=== PATIENT | male | born 1940 | race Caucasian/White ===

== ENCOUNTER 2018-05-16 14:35 | Inpatient (IN) | payer MEDICARE, SELFPAY ==
[2018-05-16] VITALS (13 sets, daily range): BP systolic 152–191; BP diastolic 76–129; PULSE 61–96; RESP 14–25; TEMP 36.4–37.2; O2SAT 87–96; BMI 21.1; BMI 20.6
[2018-05-16 15:46] LABS: Absolute Lymphocyte Count 0.94 X10^3/ul (0.83-4.51); Absolute Neutrophil Count 11.3 X10^3/uL (2.0-7.7); Basophil# 0.01 X10^3/uL; Basophil% 0.1 % (0-1); Hematocrit 34.2 % (40-54); Lymphocyte # 0.94 X10^3/ul (4.0); Lymphocyte % 7.2 % (19-41); Mean Corp Hgb Conc 32.2 g/gl (32-36); Mean Corpuscular Hgb 31.6 pg (27.0-32.0); Mean Corpuscular Volume 98.3 fL (80-94); Mean Platelet Vol. 10.9 fl (6.2-12.0); Monocyte# 0.68 X10^3/uL; Monocyte% 5.2 % (0-10); Neutrophil # 11.32 X10^3/uL (2.7-7.7); Neutrophil % 87.2 % (47-70); POSITIVE COUNT NO; POSITIVE DIFFERENTIAL NO; POSITIVE MORPHOLOGY NO; Platelet Count 228 K/mm3 (150-450); RBC Distribution Width CV 15.2 % (11.6-14.6); RBC Distribution Width SD 54.4 fl (35.1-43.9); Red Blood Count 3.48 M/mm3 (4.6-6.2)
[2018-05-16] MEDS: Ipratropium/Albuterol Sulfate 3 ML AMPUL.NEB INHALATION (15:47)
[2018-05-16] MEDS: Albuterol 2.5 MG/3 ML VIAL.NEB. INHALATION (15:47)
[2018-05-16 15:50] LABS: Anion Gap 6 (5-15); BUN 20 mg/dL (7-18); BUN/Creat Ratio 16.8 RATIO (10-20); Calcium,Total 8.6 mg/dL (8.5-10.1); Chloride 102 mmol/L (98-107); Creatinine, Serum 1.19 mg/dL (0.70-1.30); EST Glomerular Filtration Rate 63 mL/min (>60); Est Glom Filt Rate - Afr Amer 76 mL/min (>60); Estimated Creatinine Clearance 44.85 ml/min; Glucose 118 mg/dL (74-106); Potassium 4.9 mmol/L (3.5-5.1); Sodium Level 137 mmol/L (136-145)
[2018-05-16 15:55] LABS: Lactic Acid 1.7 mmol/L (0.4-2.0)
--- NOTE | 2018-05-16 18:20 | ED.VISSUMM ---
- ER Visit Summary Date of Service: 05/16/18 Chief Complaint: Abdominal pain History of Present Illness: The patient is a 77 M who was admitted as an observation patient to [facility] past Thursday for abdominal pain. Was found that he was constipated. He has had intermittent episodes since discharge. followed by our recommendation he now has diarrhea. She is concerned that he has a fecal impaction. She also believes that the shortness of breath and cough are secondary to the abdominal pain. Triage nurse and bedside nurse both document patient has audible wheezing. answers most questions. He has not had a documented fever. He has had no night sweats. 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 He also has diagnoses COPD. Review of old records also indicate he has history coronary disease, hypertension, hypercholesterolemia and hypothyroidism. He is status post three-vessel coronary bypass surgery. Physical Examination: Vital signs micromelic blood pressure 189/129. Patient is breathing much more rapidly and 22 times a minute. There is use of accessory muscles. He was hypoxic on room air. He is not on home oxygen. HEENT exam is unremarkable with pink conjunctival. Lungs reveal wheezing throughout with rales. There is use of accessory muscles. There is increased x-ray phase. There is decreased air movement. Heart is regular without murmur, gallop or rub. Abdomen slightly distended bowel sounds are present and normal. Rectal exam reveals no fecal impaction or stool in the rectum. He is alert oriented. Cranial 2 through 12 intact. He moves all extremities. Sensations intact. He has a depressed affect. Test Results: EKG was obtained because monitor revealed bigeminy. Rate is 90. Sinus mechanism with frequent premature ventricular beats and nonspecific ST-T wave changes which may be secondary to the premature ventricular beats. White count elevated 13,000 with 87 segs. Electro panel reveals glucose of 118. Lactate is normal at 1.7. Two-view chest x-ray reveals chronic changes there is no evidence of pneumonia, pneumothorax or hilar lymphadenopathy. Emergency Department Course and Treatment: With patient being dyspneic with use of accessory muscles and audible wheezing history of COPD due to rule out pneumonia versus exacerbation COPD versus pneumothorax. He was treated with DuoNeb and albuterol. He was placed on oxygen. Since he has a history of Stone's disease he will receive a stress dose of prednisone and because he has history of COPD with distress and hypoxia will treat with antibiotics. Treatment Plan: Antibiotics, systemic steroids, oxygen for hypoxia Disposition: The hospitalist was paged for admission Impression: 1. Respiratory failure with hypoxia 2. Exacerbation of COPD 3. History of Stone's disease 4. Abdominal pain unknown etiology 5. History of coronary disease 6. Ventricular ectopy with bigeminy This note was generated with [employer] software. It may contain incorrect words, spelling, and punctuation that were not noted in review of the chart prior to signing ED Disposition - Plan for ED Patient: Chief Complaint: Shortness of Breath Referrals: Nolan Amaya MD [Primary Care Provider] -
--- NOTE | 2018-05-16 18:24 | ED.DCSUM_ITS ---
- ER Visit Summary Date of Service: 05/16/18 Chief Complaint: Abdominal pain History of Present Illness: The patient is a 77 M who was admitted as an observation patient to [facility] past Thursday for abdominal pain. Was found that he was constipated. He has had intermittent episodes since discharge. followed by our recommendation he now has diarrhea. She is concerned that he has a fecal impaction. She also believes that the shortness of breath and cough are secondary to the abdominal pain. Triage nurse and bedside nurse both document patient has audible wheezing. answers most questions. He has not had a documented fever. He has had no night sweats. 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 He also has diagnoses COPD. Review of old records also indicate he has history coronary disease, hypertension, hypercholesterolemia and hypothyroidism. He is status post three-vessel coronary bypass surgery. Physical Examination: Vital signs micromelic blood pressure 189/129. Patient is breathing much more rapidly and 22 times a minute. There is use of accessory muscles. He was hypoxic on room air. He is not on home oxygen. HEENT exam is unremarkable with pink conjunctival. Lungs reveal wheezing throughout with rales. There is use of accessory muscles. There is increased x -ray phase. There is decreased air movement. Heart is regular without murmur, gallop or rub. Abdomen slightly distended bowel sounds are present and normal. Rectal exam reveals no fecal impaction or stool in the rectum. He is alert oriented. Cranial 2 through 12 intact. He moves all extremities. Sensations intact. He has a depressed affect. Test Results: EKG was obtained because monitor revealed bigeminy. Rate is 90. Sinus mechanism with frequent premature ventricular beats and nonspecific ST-T wave changes which may be secondary to the premature ventricular beats. White count elevated 13,000 with 87 segs. Electro panel reveals glucose of 118. Lactate is normal at 1.7. Two-view chest x-ray reveals chronic changes there is no evidence of pneumonia, pneumothorax or hilar lymphadenopathy. Emergency Department Course and Treatment: With patient being dyspneic with use of accessory muscles and audible wheezing history of COPD due to rule out pneumonia versus exacerbation COPD versus pneumothorax. He was treated with DuoNeb and albuterol. He was placed on oxygen. Since he has a history of Cameron's disease he will receive a stress dose of prednisone and because he has history of COPD with distress and hypoxia will treat with antibiotics. Treatment Plan: Antibiotics, systemic steroids, oxygen for hypoxia Disposition: The hospitalist was paged for admission Impression: 1. Respiratory failure with hypoxia 2. Exacerbation of COPD 3. History of Cameron's disease 4. Abdominal pain unknown etiology 5. History of coronary disease 6. Ventricular ectopy with bigeminy This note was generated with [employer] software. It may contain incorrect words, spelling, and punctuation that were not noted in review of the chart prior to signing ED Disposition - Plan for ED Patient: Chief Complaint: Shortness of Breath Referrals: Nolan Amaya MD [Primary Care Provider] -
--- NOTE | 2018-05-16 18:33 | PCM.HP.STD ---
Problem List (1) Tobacco use Status: Acute (2) Abdominal pain Status: Acute Qualifiers: Abdominal location: unspecified location Qualified Code(s): R10.9 - Unspecified abdominal pain (3) COPD exacerbation Status: Acute (4) Hypothyroidism Status: Chronic Qualifiers: Hypothyroidism type: unspecified Qualified Code(s): E03.9 - Hypothyroidism, unspecified (5) Hypertension Status: Chronic (6) [place]'s disease Status: Chronic (7) CAD (coronary artery disease) Status: Chronic Qualifiers: Coronary Disease-Associated Artery/Lesion type: unspecified vessel or lesion type [place] vs. transplanted heart: unspecified whether [place] or transplanted heart Associated angina: angina presence unspecified Qualified Code(s): I25.10 - Atherosclerotic heart disease of [place] coronary artery without angina pectoris (8) HLD (hyperlipidemia) Status: Chronic Qualifiers: Hyperlipidemia type: unspecified Qualified Code(s): E78.5 - Hyperlipidemia, unspecified History of Present Illness Date of Admission: 05/16/18 Chief Complaint: Dyspnea, wheezing, abdominal cramping/loose stools. The patient is a 77 y/o M w/ PMHx: CAD s/p CABG and PCI in addition to aortic stent and iliac stent, [place]'s Disease, HTN, Hypothyroidism, Chronic COPD who presents to the [facility] ED on 05/16/18 with history of recent abdominal discomfort, constipation prompting recent evaluation at [facility] this past Thursday with CT A/P at that time notable for only constipation with discharge to home on aggressive bowel regimen following initiation onset abdominal cramping and loose stools with now onset progressively worsening dyspnea, wheezing and accessory muscle usage prompting presentation to the ED for reassessment. He additionally notes mild distention and poor appetite. In the ED workup included afebrile, heart rate 90, initial BP 189/129--> 176/93, respiratory rate 22, 97% on 2 L nasal cannula with desaturation off oxygen to 87%, CBC with WBC 13, hemoglobin 11, platelet 228 with left shift, BMP with BUN 20/creatinine 1.19, glucose 118, lactic acid 1.7, chest x-ray with findings consistent with chronic COPD changes otherwise no acute. In the ED patient administered Levaquin, Solu-Medrol, DuoNeb, albuterol. Past Medical History Past Medical History (Chronic Problems): Chronic Problems CAD (coronary artery disease) (Chronic) HLD (hyperlipidemia) (Chronic) Hypothyroidism (Chronic) Hypertension (Chronic) Ever's disease (Chronic) Allergies lisinopril Allergy (Verified 05/16/18 14:40) Angioedema Home Medications: Ambulatory Orders Medication Instructions Recorded Aspirin [Aspirin, Baby] 81 mg PO DAILY@0800 06/29/13 Clopidogrel Bisulfate [Plavix] 75 mg PO DINNER 06/29/13 Levothyroxine [Synthroid] 100 mcg PO DAILY 06/29/13 Losartan Potassium [Cozaar] 50 mg PO DAILY 06/29/13 Metoprolol Tartrate [Lopressor 50 mg PO BID 06/29/13 (beta kavon)] Hydrocortisone 20 mg PO BREAKFAST 12/12/15 Albuterol Inhaler [Ventolin Hfa] 2 puff INHALATION Q4H PRN PRN #1 12/13/15 inhaler Hydrocortisone 10 mg PO DINNER 09/28/17 Budesonide/Formoterol Fumarate 10.2 gm IH BID #1 hfa.aer.ad 09/29/17 [Symbicort 160-4.5 Mcg Inhaler] Guaifenesin [Mucinex] 600 mg PO BID #14 tab 09/29/17 Atorvastatin Calcium [Lipitor] 20 mg PO QHS 05/16/18 Surgical History: cholecystectomy, coronary bypass surgery, - - Coronary artery stents, aortic stent, iliac stent Psychiatric History: No pertinent psych hx Lives: Spouse/ Significant Other Smoking Status: Light Smoker (<10/day) Tobacco Use: Cigarettes Alcohol: None Drugs: None - *Family History Maternal History Items: Diabetes, High Cholesterol, Heart Disease, Hypertension Paternal History Items: Diabetes, High Cholesterol, Heart Disease, Hypertension Review of Systems Constitutional: Reports: Anorexia, Malaise, Weakness, Fatigue. Denies: Chills, Fever, Weight Change HEENT: Denies: Head Aches, Sinus Congestion, Sinus Drainage Cardiovascular: Denies: Chest Pain, Palpitations Respiratory: Reports: Shortness of Breath, Shortness of breath at rest, Shortness of breath upon exertion, Wheezing. Denies: Cough, Sputum production Gastrointestinal: Reports: Abdominal Pain, Diarrhea, Nausea. Denies: Vomiting Genitourinary: Denies: Dysuria Musculoskeletal: Denies: Joint Pain, Joint Tenderness Skin: Denies: Rash, Wounds Neurological: Denies: Numbness, Tingling, Focal weakness Psychiatric: Denies: Anxiety, Depression, Homicidal Ideations, Suicidal Ideations Hematologic/ Lymphatic: Reports: Anemia, Easy Bruising, Easy Bleeding VTE Information - Inpt Only VTE Present on Admission: No VTE Mechan Device Prophylaxis: SCD's VTE Pharm Prophylaxis ordered?: Yes Patient Problems: Active and Suspected Problems Tobacco use (Acute) Abdominal pain (Acute) Subjective: Upright in the ED bed, still ongoing accessory muscle usage, increased work of breathing, increased respiratory rate. He notes improved since initial presentation and biggest complaint is abdominal discomfort. Objective: Physical Examination: General: awake, alert, oriented x 3 but does have dementia notes and can be confused at night, hard of hearing, cooperative, seated upright in the ED bed in no apparent distress. Skin: normal color, turgor, no icterus, cyanosis have notable extremity ecchymoses various staged. HEENT: AT/NC, EOMI, PERRLA, dry MM, no carotid bruits or JVD noted. Lungs: Severely diffusely diminished breath sounds bilaterally, greater bases, distant and expiratory wheezing, accessory muscle usage, increased respiratory rate, and increased work of breathing. Heart: Regular rate and rhythm; no gallop, rub audible. Abdomen: soft, generalized mild discomfort with palpation, mild to moderate distention, hyperactive bowel sounds, difficult to assess HSM secondary to discomfort with examination and distention. Extremities: no cyanosis, clubbing, or edema. Neurological: patient awake, alert, oriented x 3; cognitive function intact, but does state he does have underlying dementia and can have a confusion intermittently especially at night; pupils equally reactive to light and accomodation; cranial nerves II-XII grossly normal, moving all 4 extremities, no focal deficits, strength fairly globally decreased secondary to acute presentation. Psychiatric: affect appears normal, no acute evidence of depressive or anxiety feelings. - Physical Exam Vital Signs Temp Pulse Resp BP Pulse Ox 97.6 F L 89 18 176/93 H 93 05/16/18 14:36 05/16/18 18:29 05/16/18 18:29 05/16/18 18:29 05/16/18 18:29 Oxygen Flow Rate (L/min) 4 Oxygen Delivery Method Nasal Cannula Weight: 138 lb 14.259 oz Body Mass Index (BMI) 21.1 Laboratory Tests Past 24 Hrs 08/05/16/18 05/16/18 15:00 15:00 15:00 WBC 13.0 H RBC 3.48 L Hgb 11.0 L Hct 34.2 L MCV 98.3 H MCH 31.6 MCHC 32.2 RDW 15.2 H RDW Differential 54.4 H Plt Count 228 MPV 10.9 Immature Gran % (Auto) 0.300 Neut % (Auto) 87.2 H Lymph % (Auto) 7.2 L [place] % (Auto) 5.2 Eos % (Auto) 0.0 Baso % (Auto) 0.1 Absolute Neuts (auto) 11.3 H Absolute Lymphs (auto) 0.94 Total Counted Not Reportable Sodium 137 Potassium 4.9 Chloride 102 Carbon Dioxide 29.0 Anion Gap 6 BUN 20 H Creatinine 1.19 Estim Creat Clear Calc 44.85 Est GFR (MDRD) Af Amer 76 Est GFR (MDRD) Non-Af 63 BUN/Creatinine Ratio 16.8 Glucose 118 H Lactic Acid 1.7 Calcium 8.6 Assessment/Plan All Active Problems Tobacco use (Acute) Abdominal pain (Acute) COPD exacerbation (Acute) Shortness of breath (Acute) The patient is a 77 y/o M w/ PMHx: CAD s/p CABG and PCI in addition to aortic stent and iliac stent, Ever's Disease, HTN, Hypothyroidism, Chronic COPD who presents to the [facility] ED on 05/16/18 with history of recent abdominal discomfort, constipation prompting recent evaluation at [facility] this past Thursday with CT A/P at that time notable for only constipation with discharge to home on aggressive bowel regimen following initiation onset abdominal cramping and loose stools with now onset progressively worsening dyspnea, wheezing and accessory muscle usage prompting presentation to the ED for reassessment. (1) Acute Hypoxic Respiratory Failure secondary to Acute on chronic COPD exacerbation: CXR w/ chronic COPD changes, CBC on admission w/ WBC 13 with L shift, afebrile. Will admit to PCU, maintain on telemetry monitoring, maintain on oxygen with wean as tolerated to room air, continue ATC duonebs, PRN albuterol, IV methylprednisolone, HOB, IS parameters, IV Levaquin with pending sputum cultures and respiratory viral panel. (2) CAD: s/p CABG and PCI in addition to aortic stent and iliac stent, maintain on asa, plavix, statin, BB. (3) Hypertension: Continue home regimen including losartan, metoprolol, PRN hydralazine. (4) Hyperlipidemia: Continue home statin regimen. (5) [place] disease: Continued on steroids as noted. Will potentially need prolonged taper given concurrent process. (6) Hypothyroidism: Continue home synthroid regimen. (7) Tobacco Abuse: Encouraged cessation, inpatient consultation per RT, NR if desired. (8) Constipation, Recent w/ Now Loose stools w/ Distention, Pain: Loose stools and abdominal cramping secondary to recent aggressive bowel regimen, will plain film abd given distention and ongoing discomfort, NPO status w/ IVFs until results obtained in case of concerning findings, start diet possibly clears if unremarkable to assure tolerated. (9) DVT Prophylaxis: SCDs, lovenox. (10) CODE status: Patient does have healthcare power of family law mediator and currently working on living well. is healthcare power of family law mediator. Discussed CODE status at length including difference between FULL code, DNR-CCA and DNR-CC status. Following discussions about the differences in these status, confirmed status DNR-CCA, no intubation status. Advanced Care Planning Face to Face Time: 17 minutes. Code Visit Inpatient E&M: 96591 Init Hosp L3 Procedures: 34577 Advncd Care Plan 30 Min
[2018-05-16] MEDS: levoFLOXacin 750 MG Tablet PO (18:41)
[2018-05-16] MEDS: MethylPREDNISolone 125 MG/2 ML Vial 60 MG IV (18:41)
[2018-05-16 21:03] LABS: Magnesium 3.2 mg/dL (1.6-2.6)
[2018-05-16] MEDS: Atorvastatin Calcium 20 MG Tablet PO (21:13)
[2018-05-16] MEDS: Metoprolol Tartrate 50 MG Tablet PO (21:13)
[2018-05-16] MEDS: guaiFENesin 600 MG Tablet PO (21:13)
[2018-05-16] MEDS: 0.9% Normal Saline 1,000 ML 100 ML IV (21:14)
[2018-05-16 22:15] LABS: Base Excess 3 mmol/L (-2 to +2); Bicarbonate 26.6 mmol/L (22-26); Blood Gas Specimen Type ART; O2 Delivery Device Nasal Can; PO2 63 mmHG (75-100); SITE L Radial; SO2 94 % (95-99); Time Given 2215; Total Carbon Dioxide 28 mmol/L; pCO2 33.8 mmHg (35-45)
[2018-05-17] VITALS (16 sets, daily range): BP systolic 145–172; BP diastolic 69–95; PULSE 75–104; RESP 16–24; TEMP 36.5–37.2; O2SAT 92–95
[2018-05-17] MEDS: 0.9% Normal Saline 1,000 ML 100 ML IV ×2 (04:56→17:18)
[2018-05-17 06:50] LABS: BUN 20 mg/dL (7-18); Creatinine, Serum 0.94 mg/dL (0.70-1.30); Glucose 113 mg/dL (74-106)
[2018-05-17 06:51] LABS: ALB/GLOB Ratio 0.8 RATIO (0.9-2.4); AST(SGOT) 22 U/L (15-37); Alanine Aminotransfer ALT/SGPT 18 U/L (16-61); Albumin, Serum 3.2 g/dL (3.2-5.0); Alkaline Phosphatase 61 U/L (45-117); Anion Gap 6 (5-15); BUN/Creat Ratio 21.3 RATIO (10-20); Calcium,Total 8.3 mg/dL (8.5-10.1); Chloride 108 mmol/L (98-107); EST Glomerular Filtration Rate 82 mL/min (>60); Est Glom Filt Rate - Afr Amer 99 mL/min (>60); Estimated Creatinine Clearance 55.52 ml/min; Protein, Total 7.2 g/dL (6.4-8.2); Sodium Level 141 mmol/L (136-145)
[2018-05-17 06:58] LABS: Absolute Lymphocyte Count 0.54 X10^3/ul (0.83-4.51); Absolute Neutrophil Count 6.1 X10^3/uL (2.0-7.7); Basophil# 0.01 X10^3/uL; Basophil% 0.1 % (0-1); Eosinophil# 0.01 X10^3/uL; Eosinophils% 0.1 % (0-5); Hemoglobin 10.2 g/dl (13.0-16.5); Lymphocyte # 0.54 X10^3/ul (4.0); Lymphocyte % 7.2 % (19-41); Mean Corp Hgb Conc 31.9 g/gl (32-36); Mean Corpuscular Hgb 31.8 pg (27.0-32.0); Mean Corpuscular Volume 99.7 fL (80-94); Mean Platelet Vol. 10.3 fl (6.2-12.0); Monocyte# 0.78 X10^3/uL; Monocyte% 10.4 % (0-10); Neutrophil # 6.14 X10^3/uL (2.7-7.7); Neutrophil % 81.7 % (47-70); Platelet Count 171 K/mm3 (150-450); RBC Distribution Width CV 14.8 % (11.6-14.6); RBC Distribution Width SD 52.1 fl (35.1-43.9); Red Blood Count 3.21 M/mm3 (4.6-6.2); White Blood Count 7.5 K/mm3 (4.4-11.0)
[2018-05-17 07:01] LABS: Differential Indicated SCAN CRITERIA MET; POSITIVE COUNT NO; POSITIVE DIFFERENTIAL YES; POSITIVE MORPHOLOGY NO
[2018-05-17 07:05] LABS: Differential Comment SCANNED
[2018-05-17] MEDS: Ipratropium/Albuterol Sulfate 3 ML AMPUL.NEB INHALATION ×5 (07:10→23:27)
--- NOTE | 2018-05-17 07:55 | PCM.PN.HOSP ---
Patient Problems: Active and Suspected Problems Tobacco use (Acute) Abdominal pain (Acute) Subjective: Patient with continued abdominal discomfort and distention with KUB concerning for possible distal bowel obstruction. Contacted surgery and pending evaluation and agreement per general surgery that given distal nature less usefulness to NG tube placement. Patient notes that breathing despite abdominal discomfort has improved but still notable discomfort with any exertion and some dyspnea. He does admit to some nausea but no emesis since admission. Patient denies fevers, chills, chest pain. Objective: Physical Examination: General: awake, alert, oriented x 3, hard of hearing, cooperative, seated upright, NAD. Skin: normal color, turgor, no icterus, cyanosis have notable extremity ecchymoses various staged. HEENT: AT/NC, EOMI, PERRLA, improved less dry MM. Lungs: Improved BS, but still severely diffusely diminished BL, > bases, markedly lessened expiratory wheezing, resolved respiratory distress. Heart: Regular rate and rhythm; no gallop, rub audible. Abdomen: soft, continued generalized mild discomfort with palpation, mild to moderate distention, hyperactive bowel sounds. Extremities: no cyanosis, clubbing, or edema. Neurological: patient awake, alert, oriented x 3; cognitive function intact, but does state he does have underlying dementia and can have a confusion intermittently especially at night; pupils equally reactive to light and accomodation; cranial nerves II-XII grossly normal, moving all 4 extremities, no focal deficits, strength severely globally decreased secondary to acute presentation. Psychiatric: affect appears normal, no acute evidence of depressive or anxiety feelings. Vitals/I&O's: Vital Signs Temp Pulse Resp BP Pulse Ox 98.1 F 81 18 152/84 H 92 05/17/18 04:20 05/17/18 07:25 05/17/18 07:10 05/17/18 04:20 05/17/18 07:10 Oxygen Flow Rate (L/min) 2 Oxygen Delivery Method Nasal Cannula Weight: 135 lb 12.876 oz Body Mass Index (BMI) 20.6 Intake and Output for Last 24 Hours 05/15/18 05/16/18 05/17/18 23:59 23:59 23:59 Intake Total 998 / 998 Output Total 200 / 200 Balance 798 / 798 Laboratory Results 05/16/18 22:12: Specimen Type ART, Sample Site L Radial, pH 7.50 H, Bicarbonate Actual 26.6 H, POC Total CO2 28, Base Excess 3 H, O2 Saturation 94 L, ABG pCO2 33.8 L, ABG pO2 63 L, Joseph Test NA, O2 Delivery Device Nasal Can, Liter Flow 2.0, Blood Gas Notified Whom DEMOND LEOS, Blood Gas Notified Time 77405/17/18 05:55: WBC 7.5, RBC 3.21 L, Hgb 10.2 L, Hct 32.0 L, MCV 99.7 H, MCH 31.8, MCHC 31.9 L, RDW 14.8 H, RDW Differential 52.1 H, Plt Count 171, MPV 10.3, Immature Gran % (Auto) 0.500, Neut % (Auto) 81.7 H, Lymph % (Auto) 7.2 L, [place] % (Auto) 10.4 H, Eos % (Auto) 0.1, Baso % (Auto) 0.1, Absolute Neuts (auto) 6.1, Absolute Lymphs (auto) 0.54 L, Total Counted Not Reportable, Differential Comment SCANNED 05/17/18 05:55: Sodium 141, Potassium 4.0, Chloride 108 H, Carbon Dioxide 27.0, Anion Gap 6, BUN 20 H, Creatinine 0.94, Estim Creat Clear Calc 55.52, Est GFR (MDRD) Af Amer 99, Est GFR (MDRD) Non-Af 82, BUN/Creatinine Ratio 21.3 H, Glucose 113 H, Calcium 8.3 L, Total Bilirubin 0.80, AST 22, ALT 18, Alkaline Phosphatase 61, Total Protein 7.2, Albumin 3.2, Globulin 4.0, Albumin/Globulin Ratio 0.8 L Current Medications Acetaminophen (Tylenol) 650 mg PO Q6H PRN PRN PRN Reason: Non-cardiac pain (mod-severe) Albuterol Sulfate (Ventolin Aerosols) 2.5 mg INHALATION Q2H PRN PRN PRN Reason: SHORTNESS OF BREATH Albuterol/Ipratropium (Duoneb) 3 ml INHALATION Q4H.RT BESSIE Last Admin: 05/17/18 07:10 Dose: 3 ml Aspirin (Aspirin, Baby) 81 mg PO DAILY@0800 [facility] Atorvastatin Calcium (Lipitor) 20 mg PO QHS BESSIE Last Admin: 05/16/18 21:13 Dose: 20 mg Clopidogrel Bisulfate (Plavix) 75 mg PO DINNER [facility] Enoxaparin Sodium (Lovenox) 40 mg SC DAILY@1000 [facility] Guaifenesin (Mucinex) 600 mg PO BID [facility] Last Admin: 05/16/18 21:13 Dose: 600 mg Hydralazine HCl (Apresoline Iv) 10 mg IV Q4H PRN PRN PRN Reason: SBP > 160 Sodium Chloride () 1,000 mls @ 100 mls/hr IV .Q10H [facility] Last Admin: 05/17/18 04:56 Dose: 100 mls/hr Levofloxacin (Levaquin Iv) 500 mg in 100 mls @ 100 mls/hr IV Q24 [facility] Pantoprazole Sodium 40 mg/ (Sodium Chloride) 110 mls @ 330 mls/hr IV Q12 [facility] Last Admin: 05/16/18 21:14 Dose: 330 mls/hr Sodium Chloride () 250 mls @ 15 mls/hr IV .[id number] PRN PRN Reason: SALINE FLUSH Levothyroxine Sodium (Synthroid) 100 mcg PO DAILY@0600 [facility] Last Admin: 05/17/18 04:59 Dose: Not Given Losartan Potassium (Cozaar) 50 mg PO DAILY [facility] Magnesium Hydroxide (Milk Of Magnesia) 30 ml PO DAILY PRN PRN Reason: Constipation Methylprednisolone (Solu-Medrol) 40 mg IV Q8 [facility] Last Admin: 05/17/18 04:56 Dose: 40 mg Metoprolol Tartrate (Lopressor (Beta Sung)) 50 mg PO BID [facility] Last Admin: 05/16/18 21:13 Dose: 50 mg Morphine Sulfate () 1 - 2 mg IV Q4H PRN PRN PRN Reason: PAIN Ondansetron HCl (Zofran) 4 mg IV Q8H PRN PRN PRN Reason: NAUSEA Oxycodone HCl (Oxyir) 5 mg PO Q4H PRN PRN PRN Reason: SEVERE PAIN (6-10/10) Promethazine HCl (Phenergan) 12.5 mg IV Q6H PRN PRN PRN Reason: NAUSEA/VOMITING Sodium Chloride () 5 - 30 ml IV UD PRN PRN Reason: SALINE FLUSH Medical Necessity - Tobacco Use Smoking Status: Light Smoker (<10/day) Tobacco Use: Cigarettes Assessment/Plan All Active Problems Tobacco use (Acute) Abdominal pain (Acute) COPD exacerbation (Acute) Shortness of breath (Acute) The patient is a 77 y/o M w/ PMHx: CAD s/p CABG and PCI in addition to aortic stent and iliac stent, [place]'s Disease, HTN, Hypothyroidism, Chronic COPD who presents to the [facility] ED on 05/16/18 with history of recent abdominal discomfort, constipation prompting recent evaluation at [facility] this past Thursday with CT A/P at that time notable for only constipation with discharge to home on aggressive bowel regimen following initiation onset abdominal cramping and loose stools with now onset progressively worsening dyspnea, wheezing and accessory muscle usage prompting presentation to the ED for reassessment. (1) Acute Hypoxic Respiratory Failure secondary to Acute on chronic COPD exacerbation: CXR w/ chronic COPD changes, CBC on admission w/ WBC 13 with L shift, afebrile. Admitted to the PCU, maintained on telemetry monitoring, maintained on oxygen with wean as tolerated to room air, continued ATC duonebs, PRN albuterol, IV methylprednisolone, HOB, IS parameters, IV Levaquin with pending sputum cultures and respiratory viral panel. 05/17/18 CBC w/ WBC 7.5, resolved shift, remains afebrile, transitioned from 4-->2L NC successfully. (2) Constipation, Recent w/ Now Loose stools w/ Distention, Pain w/ ? Bowel Obstruction: Loose stools and abdominal cramping secondary to recent aggressive bowel regimen but this has subsided and no recent BM, plain film obtained w/ distended bowel loops of the upper to mid abdomen with primarily large bowel involvement with relatively little distal air findings possibly client service representative of a distal obstruction. Maintain NPO status w/ IVFs, Dr. Kinney contacted and awaiting his input. Given distal findings noted, will not immediately place NGT until notably symptomatic as LIWS less effective for distal findings. Continue IV PPI. (3) CAD: s/p CABG and PCI in addition to aortic stent and iliac stent, maintain on asa, plavix, statin, BB. (4) Hypertension: Continue home regimen including losartan, metoprolol, PRN hydralazine. (5) Hyperlipidemia: Continue home statin regimen. 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 Will potentially need prolonged taper given concurrent process. (7) Hypothyroidism: Continue home synthroid regimen. (8) Tobacco Abuse: Encouraged cessation, inpatient consultation per RT, NR if desired. (9) DVT Prophylaxis: SCDs, lovenox. (10) CODE status: DNR-CCA, no intubation status. HCPOA. Code Visit Inpatient E&M: 06113 Subs Hosp L3
--- NOTE | 2018-05-17 07:59 | PN_ITS ---
Patient Problems: Active and Suspected Problems Tobacco use (Acute) Abdominal pain (Acute) Subjective: Patient with continued abdominal discomfort and distention with KUB concerning for possible distal bowel obstruction. Contacted surgery and pending evaluation and agreement per general surgery that given distal nature less usefulness to NG tube placement. Patient notes that breathing despite abdominal discomfort has improved but still notable discomfort with any exertion and some dyspnea. He does admit to some nausea but no emesis since admission. Patient denies fevers, chills, chest pain. Objective: Physical Examination: General: awake, alert, oriented x 3, hard of hearing, cooperative, seated upright, NAD. Skin: normal color, turgor, no icterus, cyanosis have notable extremity ecchymoses various staged. HEENT: AT/NC, EOMI, PERRLA, improved less dry MM. Lungs: Improved BS, but still severely diffusely diminished BL, > bases, markedly lessened expiratory wheezing, resolved respiratory distress. Heart: Regular rate and rhythm; no gallop, rub audible. Abdomen: soft, continued generalized mild discomfort with palpation, mild to moderate distention, hyperactive bowel sounds. Extremities: no cyanosis, clubbing, or edema. Neurological: patient awake, alert, oriented x 3; cognitive function intact, but does state he does have underlying dementia and can have a confusion intermittently especially at night; pupils equally reactive to light and accomodation; cranial nerves II-XII grossly normal, moving all 4 extremities, no focal deficits, strength severely globally decreased secondary to acute presentation. Psychiatric: affect appears normal, no acute evidence of depressive or anxiety feelings. Vitals/I&O's: Vital Signs Temp Pulse Resp BP Pulse Ox 98.1 F 81 18 152/84 H 92 05/17/18 04:20 05/17/18 07:25 05/17/18 07:10 05/17/18 04:20 05/17/18 07:10 Oxygen Flow Rate (L/min) 2 Oxygen Delivery Method Nasal Cannula Weight: 135 lb 12.876 oz Body Mass Index (BMI) 20.6 Intake and Output for Last 24 Hours 05/15/18 05/16/18 05/17/18 23:59 23:59 23:59 Intake Total 998 / 998 Output Total 200 / 200 Balance 798 / 798 Laboratory Results 05/16/18 22:12: Specimen Type ART, Sample Site L Radial, pH 7.50 H, Bicarbonate Actual 26.6 H, POC Total CO2 28, Base Excess 3 H, O2 Saturation 94 L, ABG pCO2 33.8 L, ABG pO2 63 L, Joseph Test NA, O2 Delivery Device Nasal Can, Liter Flow 2.0, Blood Gas Notified Whom DEMOND LEOS, Blood Gas Notified Time 12505/17/18 05:55: WBC 7.5, RBC 3.21 L, Hgb 10.2 L, Hct 32.0 L, MCV 99.7 H, MCH 31.8, MCHC 31.9 L, RDW 14.8 H, RDW Differential 52.1 H, Plt Count 171, MPV 10.3 , Immature Gran % (Auto) 0.500, Neut % (Auto) 81.7 H, Lymph % (Auto) 7.2 L, Charles % (Auto) 10.4 H, Eos % (Auto) 0.1, Baso % (Auto) 0.1, Absolute Neuts (auto ) 6.1, Absolute Lymphs (auto) 0.54 L, Total Counted Not Reportable, Differential Comment SCANNED 05/17/18 05:55: Sodium 141, Potassium 4.0, Chloride 108 H, Carbon Dioxide 27.0, Anion Gap 6, BUN 20 H, Creatinine 0.94, Estim Creat Clear Calc 55.52, Est GFR ( MDRD) Af Amer 99, Est GFR (MDRD) Non-Af 82, BUN/Creatinine Ratio 21.3 H, Glucose 113 H, Calcium 8.3 L, Total Bilirubin 0.80, AST 22, ALT 18, Alkaline Phosphatase 61, Total Protein 7.2, Albumin 3.2, Globulin 4.0, Albumin/Globulin Ratio 0.8 L Current Medications Acetaminophen (Tylenol) 650 mg PO Q6H PRN PRN PRN Reason: Non-cardiac pain (mod-severe) Albuterol Sulfate (Ventolin Aerosols) 2.5 mg INHALATION Q2H PRN PRN PRN Reason: SHORTNESS OF BREATH Albuterol/Ipratropium (Duoneb) 3 ml INHALATION Q4H.RT BESSIE Last Admin: 05/17/18 07:10 Dose: 3 ml Aspirin (Aspirin, Baby) 81 mg PO DAILY@0800 [facility] Atorvastatin Calcium (Lipitor) 20 mg PO QHS BESSIE Last Admin: 05/16/18 21:13 Dose: 20 mg Clopidogrel Bisulfate (Plavix) 75 mg PO DINNER [facility] Enoxaparin Sodium (Lovenox) 40 mg SC DAILY@1000 [facility] Guaifenesin (Mucinex) 600 mg PO BID [facility] Last Admin: 05/16/18 21:13 Dose: 600 mg Hydralazine HCl (Apresoline Iv) 10 mg IV Q4H PRN PRN PRN Reason: SBP > 160 Sodium Chloride () 1,000 mls @ 100 mls/hr IV .Q10H [facility] Last Admin: 05/17/18 04:56 Dose: 100 mls/hr Levofloxacin (Levaquin Iv) 500 mg in 100 mls @ 100 mls/hr IV Q24 [facility] Pantoprazole Sodium 40 mg/ (Sodium Chloride) 110 mls @ 330 mls/hr IV Q12 [facility] Last Admin: 05/16/18 21:14 Dose: 330 mls/hr Sodium Chloride () 250 mls @ 15 mls/hr IV .[id number] PRN PRN Reason: SALINE FLUSH Levothyroxine Sodium (Synthroid) 100 mcg PO DAILY@0600 [facility] Last Admin: 05/17/18 04:59 Dose: Not Given Losartan Potassium (Cozaar) 50 mg PO DAILY [facility] Magnesium Hydroxide (Milk Of Magnesia) 30 ml PO DAILY PRN PRN Reason: Constipation Methylprednisolone (Solu-Medrol) 40 mg IV Q8 [facility] Last Admin: 05/17/18 04:56 Dose: 40 mg Metoprolol Tartrate (Lopressor (Beta Sung)) 50 mg PO BID [facility] Last Admin: 05/16/18 21:13 Dose: 50 mg Morphine Sulfate () 1 - 2 mg IV Q4H PRN PRN PRN Reason: PAIN Ondansetron HCl (Zofran) 4 mg IV Q8H PRN PRN PRN Reason: NAUSEA Oxycodone HCl (Oxyir) 5 mg PO Q4H PRN PRN PRN Reason: SEVERE PAIN (6-10/10) Promethazine HCl (Phenergan) 12.5 mg IV Q6H PRN PRN PRN Reason: NAUSEA/VOMITING Sodium Chloride () 5 - 30 ml IV UD PRN PRN Reason: SALINE FLUSH Medical Necessity - Tobacco Use Smoking Status: Light Smoker (<10/day) Tobacco Use: Cigarettes Assessment/Plan All Active Problems Tobacco use (Acute) Abdominal pain (Acute) COPD exacerbation (Acute) Shortness of breath (Acute) The patient is a 77 y/o M w/ PMHx: CAD s/p CABG and PCI in addition to aortic stent and iliac stent, [place]'s Disease, HTN, Hypothyroidism, Chronic COPD who presents to the [facility] ED on 05/16/18 with history of recent abdominal discomfort, constipation prompting recent evaluation at [facility] this past Thursday with CT A/P at that time notable for only constipation with discharge to home on aggressive bowel regimen following initiation onset abdominal cramping and loose stools with now onset progressively worsening dyspnea, wheezing and accessory muscle usage prompting presentation to the ED for reassessment. (1) Acute Hypoxic Respiratory Failure secondary to Acute on chronic COPD exacerbation: CXR w/ chronic COPD changes, CBC on admission w/ WBC 13 with L shift, afebrile. Admitted to the PCU, maintained on telemetry monitoring, maintained on oxygen with wean as tolerated to room air, continued ATC duonebs, PRN albuterol, IV methylprednisolone, HOB, IS parameters, IV Levaquin with pending sputum cultures and respiratory viral panel. 05/17/18 CBC w/ WBC 7.5, resolved shift, remains afebrile, transitioned from 4-->2L NC successfully. (2) Constipation, Recent w/ Now Loose stools w/ Distention, Pain w/ ? Bowel Obstruction: Loose stools and abdominal cramping secondary to recent aggressive bowel regimen but this has subsided and no recent BM, plain film obtained w/ distended bowel loops of the upper to mid abdomen with primarily large bowel involvement with relatively little distal air findings possibly insurance account representative of a distal obstruction. Maintain NPO status w/ IVFs, Dr. Kinney contacted and awaiting his input. Given distal findings noted, will not immediately place NGT until notably symptomatic as LIWS less effective for distal findings. Continue IV PPI. (3) CAD: s/p CABG and PCI in addition to aortic stent and iliac stent, maintain on asa, plavix, statin, BB. (4) Hypertension: Continue home regimen including losartan, metoprolol, PRN hydralazine. (5) Hyperlipidemia: Continue home statin regimen. (6) [place]'s disease: Continued on steroids as noted. Will potentially need prolonged taper given concurrent process. (7) Hypothyroidism: Continue home synthroid regimen. (8) Tobacco Abuse: Encouraged cessation, inpatient consultation per RT, NR if desired. (9) DVT Prophylaxis: SCDs, lovenox. (10) CODE status: DNR-CCA, no intubation status. HCPOA. Code Visit Inpatient E&M: 19253 Subs Hosp L3
[2018-05-17] MEDS: levoFLOXacin IV 500 MG/100 ML BAG 100 MG IV (09:19)
[2018-05-17] MEDS: Enoxaparin 40 MG/0.4 ML Syringe SC (09:29)
--- NOTE | 2018-05-17 10:47 | PCA ---
pt turns self due to back pain and tolerance
--- NOTE | 2018-05-17 12:17 | PCM.CONS.GEN ---
Problem List (1) Abdominal pain Status: Acute Qualifiers: Abdominal location: unspecified location Qualified Code(s): R10.9 - Unspecified abdominal pain Reason for Consult Date of Consultation: 05/17/18 Reason for Consultation: Abdominal pain History of Present Illness: The patient is a 77 year old M who presents with a 4 days history of worsening abdominal pain. Patient stated the abdominal pain started on . Pain had worsened on Thursday and he was taken to [place] ED where a CT scan was obtained noting constipation per patient's . Patient was given enema, milk of magnesia, and Miralax. He was noted to have diarrhea. Patient was discharged to home the following day. Patient noted abdominal pain returned as soon as he got home. Patient denies nausea, vomiting with the abdominal pain. Patient notes the abdominal pain caused increase shortness of breath which made the patient come into the ED. Patient has a history of aortic stent, iliac stent and cardiac stents x 6 placement. He is currently maintained on plavix and ASA. He had an M.I. at age 48. 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 Patient denies bright red blood per rectum, melena. He denies laxative use. Per patient's , patient has had difficulty with constipation for many years. KUB demonstrates dilated large colon. Questionable bowel obstruction. Patient had a bowel movement approximately 1 hour prior to our evaluation. He is also passing flatus. Past Medical History Past Medical History (Chronic Problems): Chronic Problems CAD (coronary artery disease) (Chronic) HLD (hyperlipidemia) (Chronic) Hypothyroidism (Chronic) Hypertension (Chronic) Ever's disease (Chronic) Allergies lisinopril Allergy (Verified 05/16/18 14:40) Angioedema Home Medications: Ambulatory Orders Medication Instructions Recorded Aspirin [Aspirin, Baby] 81 mg PO DAILY@0800 06/29/13 Clopidogrel Bisulfate [Plavix] 75 mg PO DINNER 06/29/13 Levothyroxine [Synthroid] 100 mcg PO DAILY 06/29/13 Losartan Potassium [Cozaar] 50 mg PO DAILY 06/29/13 Metoprolol Tartrate [Lopressor 50 mg PO BID 06/29/13 (beta kavon)] Hydrocortisone 20 mg PO BREAKFAST 12/12/15 Albuterol Inhaler [Ventolin Hfa] 2 puff INHALATION Q4H PRN PRN #1 12/13/15 inhaler Hydrocortisone 10 mg PO DINNER 09/28/17 Budesonide/Formoterol Fumarate 10.2 gm IH BID #1 hfa.aer.ad 09/29/17 [Symbicort 160-4.5 Mcg Inhaler] Guaifenesin [Mucinex] 600 mg PO BID #14 tab 09/29/17 Atorvastatin Calcium [Lipitor] 20 mg PO QHS 05/16/18 Surgical History: cholecystectomy, coronary bypass surgery, - - Coronary artery stents, aortic stent, iliac stent Psychiatric History: No pertinent psych hx Lives: Spouse/ Significant Other Smoking Status: Light Smoker (<10/day) Tobacco Use: Cigarettes Alcohol: None Drugs: None - *Family History Maternal History Items: Diabetes, High Cholesterol, Heart Disease, Hypertension Paternal History Items: Diabetes, High Cholesterol, Heart Disease, Hypertension Review of Systems Constitutional: Reports: Anorexia, Malaise, Weakness HEENT: Reports: Difficulty Hearing Cardiovascular: Denies: Chest Pain, Palpitations Respiratory: Reports: Shortness of Breath Gastrointestinal: Reports: Abdominal Pain, Constipation. Denies: Nausea, Melena, Vomiting Genitourinary: Denies: Dysuria Musculoskeletal: Denies: Joint Pain, Joint Tenderness Skin: Denies: Rash, Wounds Neurological: Denies: Numbness, Tingling, Focal weakness Psychiatric: Reports: Depression Hematologic/ Lymphatic: Reports: Anemia, Easy Bruising Patient Problems: Active and Suspected Problems Tobacco use (Acute) Abdominal pain (Acute) - Physical Exam General: Alert, Oriented x3, Cooperative HEENT: Atraumatic, PERRLA, EOMI, Normocephalic Neck: Supple, No JVD, Negative Carotid Bruits Lungs: Wheezes - Bilateral lungs Cardiovascular: Regular rate, No murmurs Abdomen: Bowel Sounds Present, Soft, Non Tender, Distended - slightly Extremities: No edema, Capillary Refill Less than 3 Seconds Skin: No rashes, No breakdown Musculoskeletal: Muscle Wasting Neurological: Neuro grossly intact Psych/Mental Status: Normal Affect, Appropriate Vital Signs Temp Pulse Resp BP Pulse Ox 97.7 F L 81 20 H 145/95 H 94 05/17/18 09:31 05/17/18 11:30 05/17/18 11:00 05/17/18 09:31 05/17/18 09:31 Oxygen Flow Rate (L/min) 2 Oxygen Delivery Method Nasal Cannula Weight: 135 lb 12.876 oz Body Mass Index (BMI) 20.6 Intake and Output for Last 24 Hours 05/15/18 05/16/18 05/17/18 23:59 23:59 23:59 Intake Total 1565 / 1565 Output Total 400 / 400 Balance 1165 / 1165 Microbiology Past 72 Hours 05/16/18 22:05 Respiratory Panel (PCR) - Final Mucosa - Nasopharyngeal Laboratory Tests Past 24 Hrs 05/16/18 05/17/18 05/17/18 22:12 05:55 05:55 WBC 7.5 RBC 3.21 L Hgb 10.2 L Hct 32.0 L MCV 99.7 H MCH 31.8 MCHC 31.9 L RDW 14.8 H RDW Differential 52.1 H Plt Count 171 MPV 10.3 Immature Gran % (Auto) 0.500 Neut % (Auto) 81.7 H Lymph % (Auto) 7.2 L [place] % (Auto) 10.4 H Eos % (Auto) 0.1 Baso % (Auto) 0.1 Absolute Neuts (auto) 6.1 Absolute Lymphs (auto) 0.54 L Total Counted Not Reportable Differential Comment SCANNED Specimen Type ART Sample Site L Radial pH 7.50 H Bicarbonate Actual 26.6 H POC Total CO2 28 Base Excess 3 H O2 Saturation 94 L ABG pCO2 33.8 L ABG pO2 63 L Joseph Test NA O2 Delivery Device Nasal Can Liter Flow 2.0 Blood Gas Notified Whom HOSP Blood Gas Notified Time 2215 Sodium 141 Potassium 4.0 Chloride 108 H Carbon Dioxide 27.0 Anion Gap 6 BUN 20 H Creatinine 0.94 Estim Creat Clear Calc 55.52 Est GFR (MDRD) Af Amer 99 Est GFR (MDRD) Non-Af 82 BUN/Creatinine Ratio 21.3 H Glucose 113 H Calcium 8.3 L Total Bilirubin 0.80 AST 22 ALT 18 Alkaline Phosphatase 61 Total Protein 7.2 Albumin 3.2 Globulin 4.0 Albumin/Globulin Ratio 0.8 L Assessment/Plan All Active Problems Tobacco use (Acute) Abdominal pain (Acute) COPD exacerbation (Acute) Shortness of breath (Acute) I have been consulted in conjunction with Dr. Kinney Impression: Constipation Plan: Dr. Kinney also evaluated this patient. Recommend Miralax twice daily. May return to once daily Miralax once discharged. Will upload CT scan from [facility] to our system. Will start clear liquids, if patient tolerates clear liquids for lunch may increase to full liquids. Recommend dietitian. Patient and his have had the opportunity to ask and have questions answered. Patient verbally understands and agrees with the plan. We will continue to monitor this patient. Thank you for allowing me to participate in this patient's care. Code Visit Office Visits / Consults: [id number] IP Consult L3
--- NOTE | 2018-05-17 13:44 | CASEMGMT ---
Face to Face with patient for initial transition planning/care coordination assessment. MONICA HELMS introduced self and role at [facility], pt voices understanding and consents to assessment this time. Pt is lying in bed and sleeping in no distress at this time. is A/O x4 at this time and answers all questions appropriately at this time. Care providers, pharmacy, and demographics verified. See attached link. voices no further concerns/needs at this time. Advised to ask for CM if any further questions/concerns/needs arise, voices understanding. CM to follow for any further discharge planning/needs. PLAN: [place] MONICA HELMS
[2018-05-17] MEDS: Clopidogrel Bisulfate 75 MG Tablet PO (17:22)
--- NOTE | 2018-05-17 18:04 | PCA ---
this dehairer assisting with incont change, pt kept taking o2 off then complaining of sob and rib pain, told pt to put 02 back on and it would help him relax with breathing and his rib pain should decrease. stated this is not the reason he is here. placed 02 back on patient, at bedside.
[2018-05-17] MEDS: Acetaminophen 325 MG Tablet 650 MG PO (19:47)
[2018-05-17] MEDS: Pantoprazole Sodium 20 MG Tablet PO (21:17)
[2018-05-17] MEDS: Atorvastatin Calcium 20 MG Tablet PO (21:17)
[2018-05-17] MEDS: guaiFENesin 600 MG Tablet PO (21:17)
[2018-05-17] MEDS: Metoprolol Tartrate 50 MG Tablet PO (21:17)
[2018-05-17] MEDS: Polyethylene Glycol 3350 17 GM PACKET PO (21:27)
[2018-05-18] VITALS (15 sets, daily range): BP systolic 147–156; BP diastolic 82–98; PULSE 67–95; RESP 16–24; TEMP 36.6–37.4; O2SAT 94–97
[2018-05-18] MEDS: Morphine 2 MG/ML Syringe IV (02:17)
[2018-05-18] MEDS: 0.9% Normal Saline 1,000 ML 100 ML IV (02:34)
[2018-05-18] MEDS: Ipratropium/Albuterol Sulfate 3 ML AMPUL.NEB INHALATION ×3 (04:13→10:54)
[2018-05-18] MEDS: Levothyroxine 100 MCG Tablet PO (05:34)
--- NOTE | 2018-05-18 06:59 | PCM.PN.SRG ---
Patient Problems: Active and Suspected Problems Tobacco use (Acute) Abdominal pain (Acute) Subjective: Patient evaluated resting comfortably in bed. He denies nausea, vomiting, abdominal pain/discomfort. He is slightly confused this morning, however answers questions appropriately. He notes having an additional bowel movement yesterday. He is passing flatus. Tolerating clear liquids well. - Physical Exam General: Alert, Oriented x3, Cooperative Abdomen: Soft, Non Tender, Hypoactive Bowel Sounds, Obese Vital Signs Temp Pulse Resp BP Pulse Ox 99.4 F H 95 18 153/82 H 94 05/18/18 05:15 05/18/18 05:15 05/18/18 05:15 05/18/18 05:15 05/18/18 05:15 Oxygen Flow Rate (L/min) 2 Oxygen Delivery Method Nasal Cannula Weight: 135 lb 12.876 oz Body Mass Index (BMI) 20.6 Intake and Output for Last 24 Hours 05/16/18 05/17/18 05/18/18 23:59 23:59 23:59 Intake Total 3190 / 3190 627 / 627 Output Total 900 / 900 575 / 575 Balance 2290 / 2290 52 / 52 Microbiology Past 72 Hours 05/16/18 22:05 Respiratory Panel (PCR) - Final Mucosa - Nasopharyngeal Laboratory Tests Past 24 Hrs 05/17/18 05:55 WBC 7.5 RBC 3.21 L Hgb 10.2 L Hct 32.0 L MCV 99.7 H MCH 31.8 MCHC 31.9 L RDW 14.8 H RDW Differential 52.1 H Plt Count 171 MPV 10.3 Immature Gran % (Auto) 0.500 Neut % (Auto) 81.7 H Lymph % (Auto) 7.2 L [place] % (Auto) 10.4 H Eos % (Auto) 0.1 Baso % (Auto) 0.1 Absolute Neuts (auto) 6.1 Absolute Lymphs (auto) 0.54 L Total Counted Not Reportable Differential Comment SCANNED Medical Necessity - Tobacco Use Smoking Status: Light Smoker (<10/day) Tobacco Use: Cigarettes Assessment/Plan All Active Problems Tobacco use (Acute) Abdominal pain (Acute) COPD exacerbation (Acute) Shortness of breath (Acute) I am following this patient in conjunction with Dr. Kinney Impression: Obstipation, resolved Continue Miralax twice daily We will continue to monitor this patient May advance diet as tolerated Code Visit Inpatient E&M: 12932 Subs Hosp L1
[2018-05-18 07:59] LABS: Absolute Lymphocyte Count 0.38 X10^3/ul (0.83-4.51); Absolute Neutrophil Count 5.7 X10^3/uL (2.0-7.7); Basophil# 0.01 X10^3/uL; Basophil% 0.1 % (0-1); Differential Indicated SCAN CRITERIA MET; Hematocrit 31.4 % (40-54); Hemoglobin 10.2 g/dl (13.0-16.5); Lymphocyte # 0.38 X10^3/ul (4.0); Lymphocyte % 5.6 % (19-41); Mean Corp Hgb Conc 32.5 g/gl (32-36); Mean Corpuscular Hgb 32.5 pg (27.0-32.0); Mean Platelet Vol. 10.2 fl (6.2-12.0); Monocyte# 0.61 X10^3/uL; Neutrophil # 5.67 X10^3/uL (2.7-7.7); Neutrophil % 84.1 % (47-70); POSITIVE COUNT NO; POSITIVE DIFFERENTIAL YES; POSITIVE MORPHOLOGY NO; Platelet Count 160 K/mm3 (150-450); RBC Distribution Width CV 14.9 % (11.6-14.6); RBC Distribution Width SD 52.4 fl (35.1-43.9); Red Blood Count 3.14 M/mm3 (4.6-6.2); White Blood Count 6.8 K/mm3 (4.4-11.0)
[2018-05-18 08:11] LABS: ALB/GLOB Ratio 0.8 RATIO (0.9-2.4); AST(SGOT) 30 U/L (15-37); Alanine Aminotransfer ALT/SGPT 27 U/L (16-61); Albumin, Serum 3.3 g/dL (3.2-5.0); Alkaline Phosphatase 59 U/L (45-117); Anion Gap 10 (5-15); BUN 19 mg/dL (7-18); BUN/Creat Ratio 20.9 RATIO (10-20); Calcium,Total 8.2 mg/dL (8.5-10.1); Chloride 109 mmol/L (98-107); Creatinine, Serum 0.91 mg/dL (0.70-1.30); EST Glomerular Filtration Rate 85 mL/min (>60); Est Glom Filt Rate - Afr Amer 103 mL/min (>60); Estimated Creatinine Clearance 57.35 ml/min; Globulin 3.9 g/dL (2.2-4.2); Glucose 134 mg/dL (74-106); Potassium 3.5 mmol/L (3.5-5.1); Protein, Total 7.2 g/dL (6.4-8.2); Sodium Level 142 mmol/L (136-145)
[2018-05-18] MEDS: Polyethylene Glycol 3350 17 GM PACKET PO ×2 (10:05→21:06)
[2018-05-18] MEDS: Acetaminophen 325 MG Tablet 650 MG PO ×2 (10:05→21:01)
[2018-05-18] MEDS: Metoprolol Tartrate 50 MG Tablet PO ×2 (10:06→21:02)
[2018-05-18] MEDS: Losartan Potassium 50 MG Tablet PO (10:06)
[2018-05-18] MEDS: Enoxaparin 40 MG/0.4 ML Syringe SC (10:06)
[2018-05-18] MEDS: Aspirin 81 MG TAB.CHEW PO (10:06)
[2018-05-18] MEDS: levoFLOXacin IV 500 MG/100 ML BAG 100 MG IV (10:06)
[2018-05-18] MEDS: guaiFENesin 600 MG Tablet PO ×2 (10:06→21:02)
[2018-05-18] MEDS: Pantoprazole Sodium 20 MG Tablet PO ×2 (10:06→21:02)
--- NOTE | 2018-05-18 13:07 | PCM.PN.HOSP ---
Patient Problems: Active and Suspected Problems Tobacco use (Acute) Abdominal pain (Acute) Subjective: The patient is a 77 y/o M w/ PMHx: CAD s/p CABG and PCI in addition to aortic stent and iliac stent, Ever's Disease, HTN, Hypothyroidism, Chronic COPD who presents to the [facility] ED on 05/16/18 with history of recent abdominal discomfort, constipation prompting recent evaluation at [facility] this past Thursday with CT A/P at that time notable for only constipation with discharge to home on aggressive bowel regimen following initiation onset abdominal cramping and loose stools with now onset progressively worsening dyspnea, wheezing and accessory muscle usage prompting presentation to the ED for reassessment. CXR w/ chronic COPD changes, CBC on admission w/ WBC 13 with L shift, afebrile. Admitted to the PCU, maintained on telemetry monitoring, maintained on oxygen with wean as tolerated to room air, continued ATC duonebs, PRN albuterol, IV methylprednisolone-->prednisone taper 05/19/18 planned, HOB, IS parameters, IV Levaquin x 1 additional dose for 3 day course for exacerbation, negative respiratory viral panel. 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 Expect if tolerates diet, BM per surgery recommendation and continued improvement in pulmonary status to discharge to home 05/19/18. Patient with history of intermittent Loose stools and abdominal cramping as well as occasional constipation w/ recent self-treated aggressive bowel regimen with eventual decreased BS. Plain film obtained w/ distended bowel loops of the upper to mid abdomen with primarily large bowel involvement with relatively little distal air findings possibly investment representative of a distal obstruction. following which patient was maintained initially NPO, IVFs, Surgery consulted. Patient had onset flatus and bowel movement with resolution of his symptoms therefore felt likely obstipation w/ Surgery recommendation to follow-up with his GI physician given his chronic issues to assess for regimen/scope needs and in the interim continue BID miralax regimen. Surgery cleared patient to slowly advance diet. Will transition from FULLS-->regular diet this evening and continued to monitor, no BM since restart diet. R Lateral Rib Pain, unable to focally reproduce, does have herpetic neuralgia, will obtain R rib plain films. Patient notes discomfort to right lateral ribs and notes this started after patient was lifted in bed. He has ongoing chronic pain to the R chest and laterally secondary to herpetic neuralgia. Patient does admit that breathing has improved and discussed concept of taper and is amenable to transition to oral prednisone in the morning with continuation ?3 days followed by 30 mg ?3 days followed by 20 mg ?3 days and then 10 mg ?3 days with then resumption of home hydrocortisone regimen with a conversion hydrocortisone 20 mg equivalent to prednisone 5 mg. Patient notes abdominal discomfort and distention has resolved but he has had no further bowel movement since the day prior but tolerating currently full liquids and amenable to transition possibly to regular diet this evening. Encourage patient to consider home therapies as he had adamantly declined snf facility but he states that this is caused him marked anxiety and he does not want other people in his home and refused any therapies. Patient denies fevers, chills, nausea, emesis, abdominal pain. Objective: Physical Examination: General: awake, alert, oriented x 3, hard of hearing, cooperative, seated upright, NAD. Skin: normal color, turgor, no icterus, cyanosis have notable extremity ecchymoses various staged. HEENT: AT/NC, EOMI, PERRLA, MMM. Lungs: Improved BS, diminished bases, but notably improved, improved effort, no wheezing, still some accessory effort noted. Heart: Regular rate and rhythm; no gallop, rub audible, R lateral chest discomfort, unable to reproduce focal region has mentioned. Abdomen: soft, resolved TTP, resolved distention, normalized BS. Extremities: no cyanosis, clubbing, or edema. Neurological: patient awake, alert, oriented x 3; cognitive function intact, but does state he does have underlying dementia and can have a confusion intermittently especially at night; pupils equally reactive to light and accomodation; cranial nerves II-XII grossly normal, moving all 4 extremities, no focal deficits, strength improved but remains severely globally decreased secondary to acute presentation. Psychiatric: affect appears normal, no acute evidence of depressive or anxiety feelings. Vitals/I&O's: Vital Signs Temp Pulse Resp BP Pulse Ox 97.8 F 95 16 152/98 H 94 05/18/18 10:01 05/18/18 11:04 05/18/18 10:54 05/18/18 10:01 05/18/18 10:01 Oxygen Flow Rate (L/min) 2 Oxygen Delivery Method Nasal Cannula Weight: 135 lb 12.876 oz Body Mass Index (BMI) 20.6 Intake and Output for Last 24 Hours 05/16/18 05/17/18 05/18/18 23:59 23:59 23:59 Intake Total 3190 / 3190 1702 / 1702 Output Total 900 / 900 975 / 975 Balance 2290 / 2290 727 / 727 Microbiology Past 72 Hours 05/16/18 22:05 Mucosa - Nasopharyngeal Respiratory Panel (PCR) - Final Laboratory Results 05/18/18 07:45: WBC 6.8, RBC 3.14 L, Hgb 10.2 L, Hct 31.4 L, MCV 100.0 H, MCH 32.5 H, MCHC 32.5, RDW 14.9 H, RDW Differential 52.4 H, Plt Count 160, MPV 10.2, Immature Gran % (Auto) 1.200 H, Neut % (Auto) 84.1 H, Lymph % (Auto) 5.6 L, [place] % (Auto) 9.0, Eos % (Auto) 0.0, Baso % (Auto) 0.1, Absolute Neuts (auto) 5.7, Absolute Lymphs (auto) 0.38 L, Total Counted Not Reportable 05/18/18 07:45: Sodium 142, Potassium 3.5, Chloride 109 H, Carbon Dioxide 23.0, Anion Gap 10, BUN 19 H, Creatinine 0.91, Estim Creat Clear Calc 57.35, Est GFR (MDRD) Af Amer 103, Est GFR (MDRD) Non-Af 85, BUN/Creatinine Ratio 20.9 H, Glucose 134 H, Calcium 8.2 L, Total Bilirubin 0.70, AST 30, ALT 27, Alkaline Phosphatase 59, Total Protein 7.2, Albumin 3.3, Globulin 3.9, Albumin/Globulin Ratio 0.8 L Current Medications Acetaminophen (Tylenol) 650 mg PO Q6H PRN PRN PRN Reason: Non-cardiac pain (mod-severe) Last Admin: 05/18/18 10:05 Dose: 650 mg Albuterol Sulfate (Ventolin Aerosols) 2.5 mg INHALATION Q2H PRN PRN PRN Reason: SHORTNESS OF BREATH Albuterol/Ipratropium (Duoneb) 3 ml INHALATION Q4H.RT [facility] Last Admin: 05/18/18 10:54 Dose: 3 ml Aspirin (Aspirin, Baby) 81 mg PO DAILY@0800 [facility] Last Admin: 05/18/18 10:06 Dose: 81 mg Atorvastatin Calcium (Lipitor) 20 mg PO QHS [facility] Last Admin: 05/17/18 21:17 Dose: 20 mg Clopidogrel Bisulfate (Plavix) 75 mg PO DINNER [facility] Last Admin: 05/17/18 17:22 Dose: 75 mg Enoxaparin Sodium (Lovenox) 40 mg SC DAILY@1000 [facility] Last Admin: 05/18/18 10:06 Dose: 40 mg Guaifenesin (Mucinex) 600 mg PO BID [facility] Last Admin: 05/18/18 10:06 Dose: 600 mg Hydralazine HCl (Apresoline Iv) 10 mg IV Q4H PRN PRN PRN Reason: SBP > 160 Sodium Chloride () 250 mls @ 15 mls/hr IV .[id number] PRN PRN Reason: SALINE FLUSH Levofloxacin (Levaquin Tablet) 500 mg PO DAILY@0600 [facility] Stop: 05/20/18 06:01 Levothyroxine Sodium (Synthroid) 100 mcg PO DAILY@0600 [facility] Last Admin: 05/18/18 05:34 Dose: 100 mcg Losartan Potassium (Cozaar) 50 mg PO DAILY [facility] Last Admin: 05/18/18 10:06 Dose: 50 mg Magnesium Hydroxide (Milk Of Magnesia) 30 ml PO DAILY PRN PRN Reason: Constipation Methylprednisolone (Solu-Medrol) 40 mg IV Q12 [facility] Stop: 05/18/18 22:01 Metoprolol Tartrate (Lopressor (Beta Sung)) 50 mg PO BID [facility] Last Admin: 05/18/18 10:06 Dose: 50 mg Morphine Sulfate () 1 - 2 mg IV Q4H PRN PRN PRN Reason: PAIN Last Admin: 05/18/18 02:17 Dose: 2 mg Ondansetron HCl (Zofran) 4 mg IV Q8H PRN PRN PRN Reason: NAUSEA Oxycodone HCl (Oxyir) 5 mg PO Q4H PRN PRN PRN Reason: SEVERE PAIN (6-10/10) Pantoprazole Sodium (Protonix) 20 mg PO BID [facility] Last Admin: 05/18/18 10:06 Dose: 20 mg Polyethylene Glycol (Miralax) 17 gm PO BID [facility] Last Admin: 05/18/18 10:05 Dose: 17 gm Prednisone () 40 mg PO DAILY@0800 [facility] Promethazine HCl (Phenergan) 12.5 mg IV Q6H PRN PRN PRN Reason: NAUSEA/VOMITING Sodium Chloride () 5 - 30 ml IV UD PRN PRN Reason: SALINE FLUSH Medical Necessity - Tobacco Use Smoking Status: Light Smoker (<10/day) Tobacco Use: Cigarettes Assessment/Plan All Active Problems Tobacco use (Acute) Abdominal pain (Acute) COPD exacerbation (Acute) Shortness of breath (Acute) The patient is a 77 y/o M w/ PMHx: CAD s/p CABG and PCI in addition to aortic stent and iliac stent, Goodhue's Disease, HTN, Hypothyroidism, Chronic COPD who presents to the [facility] ED on 05/16/18 with history of recent abdominal discomfort, constipation prompting recent evaluation at [facility] this past Thursday with CT A/P at that time notable for only constipation with discharge to home on aggressive bowel regimen following initiation onset abdominal cramping and loose stools with now onset progressively worsening dyspnea, wheezing and accessory muscle usage prompting presentation to the ED for reassessment. (1) Acute Hypoxic Respiratory Failure secondary to Acute on chronic COPD exacerbation: CXR w/ chronic COPD changes, CBC on admission w/ WBC 13 with L shift, afebrile. Admitted to the PCU, maintained on telemetry monitoring, maintained on oxygen with wean as tolerated to room air, continued ATC duonebs, PRN albuterol, IV methylprednisolone-->prednisone taper 05/19/18 planned, HOB, IS parameters, IV Levaquin x 1 additional dose for 3 day course for exacerbation, negative respiratory viral panel. 05/18/18 CBC w/ WBC 76.8, resolved shift, remains afebrile, transitioned from 4-->2L NC successfully, upon discharge given Ever's disease w/ chronic steroid usage intent given hydrocortisone 20 mg=prednisone 5 mg, 40 mg x 3 days-->30 mg x 3 days-->20 mg x 3 days-->10 mg x 3 days and then transition back to his home hydrocortisone regimen. Expect if tolerates diet, BM per surgery recommendation and continued improvement in pulmonary status to discharge to home 05/19/18. (2) Obstipation, Resolved: Patient with history of intermittent Loose stools and abdominal cramping as well as occasional constipation w/ recent self-treated aggressive bowel regimen with eventual decreased BS. Plain film obtained w/ distended bowel loops of the upper to mid abdomen with primarily large bowel involvement with relatively little distal air findings possibly investment representative of a distal obstruction. following which patient was maintained initially NPO, IVFs, Surgery consulted. Patient had onset flatus and bowel movement with resolution of his symptoms therefore felt likely obstipation w/ Surgery recommendation to follow-up with his GI physician given his chronic issues to assess for regimen/scope needs and in the interim continue BID miralax regimen. Surgery cleared patient to slowly advance diet. Will transition from FULLS-->regular diet this evening and continued to monitor, no BM since restart diet. (3) R Lateral Rib Pain: Unable to reproduce, does have herpetic neuralgia, will obtain R rib plain films. (4) CAD: s/p CABG and PCI in addition to aortic stent and iliac stent, maintain on asa, plavix, statin, BB. (5) Hypertension: Continue home regimen including losartan, metoprolol, PRN hydralazine. (6) Hyperlipidemia: Continue home statin regimen. (7) Ever's disease: Continued on steroids as noted above. (8) Hypothyroidism: Continue home synthroid regimen. (9) Tobacco Abuse: Encouraged cessation, inpatient consultation per RT, NR if desired. (10) DVT Prophylaxis: SCDs, lovenox. (11) CODE status: DNR-CCA, no intubation status. HCPOA. (12) Disposition: Encouraged consideration of SNF and following declining placement encouraged home health therapies, but he has also refused this resource. Code Visit Inpatient E&M: 22547 Subs Hosp L2
[2018-05-18] MEDS: Clopidogrel Bisulfate 75 MG Tablet PO (16:03)
[2018-05-18] MEDS: Atorvastatin Calcium 20 MG Tablet PO (21:02)
[2018-05-19] VITALS (8 sets, daily range): BP systolic 142–151; BP diastolic 87–95; PULSE 68–91; RESP 16–20; TEMP 36.7; O2SAT 92–96
[2018-05-19] MEDS: Acetaminophen 325 MG Tablet 650 MG PO ×2 (03:08→10:24)
[2018-05-19] MEDS: Levothyroxine 100 MCG Tablet PO (05:21)
[2018-05-19] MEDS: levoFLOXacin 500 MG Tablet PO (05:21)
[2018-05-19 06:11] LABS: ALB/GLOB Ratio 0.8 RATIO (0.9-2.4); AST(SGOT) 23 U/L (15-37); Absolute Lymphocyte Count 0.54 X10^3/ul (0.83-4.51); Absolute Neutrophil Count 5.2 X10^3/uL (2.0-7.7); Alanine Aminotransfer ALT/SGPT 26 U/L (16-61); Alkaline Phosphatase 54 U/L (45-117); BUN 17 mg/dL (7-18); BUN/Creat Ratio 19.5 RATIO (10-20); Calcium,Total 8.1 mg/dL (8.5-10.1); Creatinine, Serum 0.87 mg/dL (0.70-1.30); EST Glomerular Filtration Rate 90 mL/min (>60); Est Glom Filt Rate - Afr Amer 109 mL/min (>60); Estimated Creatinine Clearance 59.99 ml/min; Globulin 3.7 g/dL (2.2-4.2); Glucose 124 mg/dL (74-106); Hematocrit 32.7 % (40-54); Hemoglobin 10.3 g/dl (13.0-16.5); Lymphocyte # 0.54 X10^3/ul (4.0); Lymphocyte % 8.6 % (19-41); Mean Corp Hgb Conc 31.5 g/gl (32-36); Mean Corpuscular Hgb 31.3 pg (27.0-32.0); Mean Corpuscular Volume 99.4 fL (80-94); Mean Platelet Vol. 10.9 fl (6.2-12.0); Monocyte# 0.44 X10^3/uL; Neutrophil # 5.24 X10^3/uL (2.7-7.7); Neutrophil % 83.8 % (47-70); Platelet Count 162 K/mm3 (150-450); Protein, Total 6.7 g/dL (6.4-8.2); RBC Distribution Width SD 54.1 fl (35.1-43.9); Red Blood Count 3.29 M/mm3 (4.6-6.2); Sodium Level 144 mmol/L (136-145); White Blood Count 6.3 K/mm3 (4.4-11.0)
[2018-05-19 06:12] LABS: Anion Gap 10 (5-15); Chloride 110 mmol/L (98-107); Potassium 4.3 mmol/L (3.5-5.1)
[2018-05-19 06:15] LABS: Differential Indicated SCAN CRITERIA MET; POSITIVE COUNT NO; POSITIVE DIFFERENTIAL YES; POSITIVE MORPHOLOGY NO
[2018-05-19 06:38] LABS: Differential Comment SCANNED
[2018-05-19] MEDS: Ipratropium/Albuterol Sulfate 3 ML AMPUL.NEB INHALATION ×2 (06:43→10:42)
[2018-05-19] MEDS: guaiFENesin 600 MG Tablet PO (09:02)
[2018-05-19] MEDS: Pantoprazole Sodium 20 MG Tablet PO (09:02)
[2018-05-19] MEDS: Polyethylene Glycol 3350 17 GM PACKET PO (09:02)
[2018-05-19] MEDS: Metoprolol Tartrate 50 MG Tablet PO (09:02)
[2018-05-19] MEDS: predniSONE 20 MG Tablet 40 MG PO (09:02)
[2018-05-19] MEDS: Aspirin 81 MG TAB.CHEW PO (09:03)
[2018-05-19] MEDS: Enoxaparin 40 MG/0.4 ML Syringe SC (09:03)
[2018-05-19] MEDS: Losartan Potassium 50 MG Tablet PO (09:03)
--- NOTE | 2018-05-19 09:19 | PCM.PN.SRG ---
Patient Problems: Active and Suspected Problems Tobacco use (Acute) Abdominal pain (Acute) Subjective: Patient evaluated resting comfortably in bed. Patient denies abdominal pain/discomfort. He notes he believes his bowels have returned to normal. - Physical Exam General: Alert, Oriented x3, Cooperative Abdomen: Bowel Sounds Present, Soft, Non Tender Vital Signs Temp Pulse Resp BP Pulse Ox 98.1 F 91 18 142/95 H 93 05/19/18 09:00 05/19/18 09:02 05/19/18 09:00 05/19/18 09:00 05/19/18 09:00 Oxygen Flow Rate (L/min) 3 Oxygen Delivery Method Room Air Weight: 135 lb 12.876 oz Body Mass Index (BMI) 20.6 Intake and Output for Last 24 Hours 05/17/18 05/18/18 05/19/18 23:59 23:59 23:59 Intake Total 3190 / 3190 2185 / 2185 400 / 400 Output Total 900 / 900 1375 / 1375 250 / 250 Balance 2290 / 2290 810 / 810 150 / 150 Microbiology Past 72 Hours 05/16/18 22:05 Respiratory Panel (PCR) - Final Mucosa - Nasopharyngeal Laboratory Tests Past 24 Hrs 05/19/18 05/19/18 05:00 05:00 WBC 6.3 RBC 3.29 L Hgb 10.3 L Hct 32.7 L MCV 99.4 H MCH 31.3 MCHC 31.5 L RDW 15.0 H RDW Differential 54.1 H Plt Count 162 MPV 10.9 Immature Gran % (Auto) 0.600 Neut % (Auto) 83.8 H Lymph % (Auto) 8.6 L [place] % (Auto) 7.0 Eos % (Auto) 0.0 Baso % (Auto) 0.0 Absolute Neuts (auto) 5.2 Absolute Lymphs (auto) 0.54 L Total Counted Not Reportable Differential Comment SCANNED Sodium 144 Potassium 4.3 Chloride 110 H Carbon Dioxide 24.0 Anion Gap 10 BUN 17 Creatinine 0.87 Estim Creat Clear Calc 59.99 Est GFR (MDRD) Af Amer 109 Est GFR (MDRD) Non-Af 90 BUN/Creatinine Ratio 19.5 Glucose 124 H Calcium 8.1 L Total Bilirubin 0.60 AST 23 ALT 26 Alkaline Phosphatase 54 Total Protein 6.7 Albumin 3.0 L Globulin 3.7 Albumin/Globulin Ratio 0.8 L Medical Necessity - Tobacco Use Smoking Status: Light Smoker (<10/day) Tobacco Use: Cigarettes Assessment/Plan All Active Problems Tobacco use (Acute) Abdominal pain (Acute) COPD exacerbation (Acute) Shortness of breath (Acute) I have evaluated this patient in conjunction with dr. Kinney this morning Impression: Obstipation, resolved Continue Miralax twice daily We will continue to monitor this patient May advance diet as tolerated On discharge, patient to continue Miralax daily Follow-up as needed
--- NOTE | 2018-05-19 10:28 | PCM.DC ---
- Discharge Diagnoses Current Active Problems: Current Active and Chronic Problems Tobacco use (Acute) CAD (coronary artery disease) (Chronic) HLD (hyperlipidemia) (Chronic) Abdominal pain (Acute) You will use the following diet at home:: Cardiac Your food should be the consistency of: Regular Discharge Activity: Return to Normal Activity Weight Bearing Status: Weight bearing as tolerated Call your doctor if you observe: Fever of 101 or Higher, Shortness of breath, Dizziness, Fainting spells, Chest pain, Increased palpitations (irregular heartbeat), Uncontrolled pain Additional Instructions: 1. He was tapering course of prednisone as prescribed. 2. Do not take hydrocortisone tablets while on prednisone and resume taking hydrocortisone tablets upon completing prednisone. 3. Use Tylenol as needed for pain up to 3000 mg daily. Allergies/Adverse Reactions: Allergies lisinopril Allergy (Verified 05/16/18 14:40) Angioedema Medications to take at Discharge Aspirin [Aspirin, Baby] 81 mg PO DAILY@0800 06/29/13 Clopidogrel Bisulfate [Plavix] 75 mg PO DINNER 06/29/13 Levothyroxine [Synthroid] 100 mcg PO DAILY 06/29/13 Losartan Potassium [Cozaar] 50 mg PO DAILY 06/29/13 Metoprolol Tartrate [Lopressor (beta kavon)] 50 mg PO BID 06/29/13 Hydrocortisone 20 mg PO BREAKFAST 12/12/15 Albuterol Inhaler [Ventolin Hfa] 2 puff INHALATION Q4H PRN PRN #1 inhaler 12/13/15 Hydrocortisone 10 mg PO DINNER 09/28/17 Budesonide/Formoterol Fumarate [Symbicort 160-4.5 Mcg Inhaler] 10.2 gm IH BID #1 hfa.aer.ad 09/29/17 Guaifenesin [Mucinex] 600 mg PO BID #14 tab 09/29/17 Atorvastatin Calcium [Lipitor] 20 mg PO QHS 05/16/18 Docusate Sodium [Colace] 100 mg PO DAILY PRN PRN #30 cap 05/19/18 Polyethylene Glycol 3350 [Miralax] 17 gm PO DAILY #30 packet 05/19/18 Prednisone 10 mg PO DAILY #30 tab 05/19/18 levoFLOXacin tablet [Levaquin tablet] 500 mg PO DAILY@0600 #5 tab 05/19/18 The following prescriptions were given: Docusate Sodium [Colace] 100 mg PO DAILY PRN PRN #30 cap PRN Reason: Congestion levoFLOXacin tablet [Levaquin tablet] 500 mg PO DAILY@0600 #5 tab Polyethylene Glycol 3350 [Miralax] 17 gm PO DAILY #30 packet Prednisone 10 mg PO DAILY #30 tab Primary Care Physician: Nolan Amaya MD [Primary Care Provider] - Please follow up with your Primary Care Physician in: 1 week. Test Results: Test results from this visit will be discussed in further detail at your follow-up appointment, if applicable. Please Follow Up With: Nolan Amaya MD
--- NOTE | 2018-05-19 10:50 | CASEMGMT ---
RN SCOOTER NOTE: Pt resting in bed receiving aerosal tx, awake/alert/oriented. @ bedside. Pt and both refuse SNF and also refusing any HHC services. Pt states, all I need to do is get home and I'll do okay. Pt states I don't want someone coming in and poking around at me and making my pain worse. Pt and advised if once pt returns home, if his condition changes or if they feel they need assistance to notify MD or return to hospital if needed. and pt both voice understanding. SCOOTER ornelas for discharge planning needs that may arise. Arabella DAVISN RN SCOOTER
--- NOTE | 2018-05-19 14:20 | PCM.DC.SUM ---
Discharge Date and Diagnosis Date of Admission: 05/16/18 Date of Discharge: 05/19/18 - Primary Discharge Diagnosis #1 acute COPD exacerbation. #2 acute hypoxic respiratory failure. #3 obstipation. #4 acute nondisplaced fracture of the anterior lateral aspect of the right sixth and seventh ribs. #5 chronic pain syndrome/chronic back pain/chronic chest pain. - Secondary Discharge Diagnosis Chronic Problems CAD (coronary artery disease) (Chronic) HLD (hyperlipidemia) (Chronic) Hypothyroidism (Chronic) Hypertension (Chronic) Ever's disease (Chronic) Hospital Course and Treatment Imaging Results: Clinical Impression(s) from Imaging Studies Chest X-Ray 05/16/18 15:29 IMPRESSION: There are findings consistent with COPD. There is no evidence of acute chest disease. Electronically Signed: Segundo Marie MD at 16:32 EDT , Service support , Abdomen X-Ray 05/16/18 20:05 IMPRESSION: Distended bowel loops of the upper to mid abdomen, primarily large bowel. Relatively little distal air. Findings could represent a distal obstruction. Electronically Signed: Segundo Marie MD at 21:38 EDT , Service support , Ribs w/Chest X-Ray 05/18/18 13:30 IMPRESSION: RIBS: Nondisplaced fracture involving the anterior lateral aspect of the right sixth and seventh ribs. Stable appearance of the lungs with bibasilar scarring. Electronically Signed: Eduardo Romano MD at 14:31 EDT Tel [phone], Service support , Dr. Kinney, general surgery. Operations: None Procedures: None Summary of Care Provided: Patient seen and examined on the day of discharge and appeared to be stable to be discharged home after long discussion with the patient and his about placement to prison facility. Patient continued to complain of chronic upper back pain as well as right lateral chest pain because of the fractures. He mentioned that his breathing is better and he has been off oxygen. He has chronic issues with chronic pain, chronic back pain as well as chronic chest pain. He cannot take narcotics because of severe constipation even with single dose of narcotics daily. According to patient's , patient is very poorly ambulates at home with walker. She mentioned that she gives him only Tylenol as needed for pain and it does work according to the patient himself. I suggested to the patient and his that he may need to go to prison facility and they refused. I suggested home health service with physical therapy at home and again they refused any type of at home. I offered the patient and his multiple sources of help but the refusing and patient does not look a good candidate to go home. - Physical Exam General: Alert, Oriented x3, Cooperative, No apparent distress. He is in mild pain.. HEENT: Atraumatic, PERRLA, EOMI. Neck: Supple, No JVD, Negative Carotid Bruits, Trachea Midline, Thyroid Normal. Lungs: Clear to auscultation, Normal air movement, No rhonchi, No wheeze, No rales. Cardiovascular: Regular rate, Regular Rhythm, Normal S1, Normal S2, PMI Normal. Abdomen: Bowel Sounds Present, Soft, Non Tender, Non-Distended, No Hepato-splenomegaly. Extremities: No clubbing, No cyanosis, No edema Skin: No rashes, No breakdown Neurological: Neuro grossly intact Vital Signs are stable. Hospital course: The patient is a 77 year old M admitted because of abdominal pain. X-ray of the abdomen done on admission and revealed distended bowel loops of the upper to mid abdomen primarily large bowel and those findings may represent distant bowel obstruction. Patient was treated with IV fluids, IV pain medications and IV antiemetics. General surgery consulted and recommended conservative management. Patient was given MiraLAX and he was able to have couple of bowel movements with hard stool. According to the patient's , patient has not been eating or drinking well at home. He was found to be in acute COPD exacerbation with acute hypoxic respiratory failure which was treated with bronchodilators, steroids and antibiotics. Chest x-ray revealed findings consistent with COPD without evidence of acute infiltrate. Patient continued to complain of right lateral chest pain for which repeat x-ray done and revealed nondisplaced fracture of the lateral aspect of the right sixth and seventh ribs. With bronchodilators, antibiotics and steroids, patient's breathing and respiratory status improved and we were able to take him off oxygen today, his pulse oximeter remained around 93% on room air. His other vital signs were stable. Respiratory panel for viruses were negative. His routine blood work was remarkable for chronic anemia, otherwise normal. Patient complains of body pains and aches including low back pain, upper back pain, chest pain, generalized leg pains and aches and that has been chronic. Patient's mentioned that he cannot take even one dose of narcotics a day because it causes severe constipation for him. She mentioned that she has been giving him Tylenol at home and it does work for his pain. Because of the general appearance of the patient, his pain and allover condition, I suggested placement to prison facility to the patient and his and he refused. I informed the that the right lateral chest pain due to rib fractures is basically needs pain control and no specific treatment. I mentioned to the that according to my clinical judgment, patient could be a candidate for placement to prison facility but she mentioned that because she had a bad experience with nursing homes, she does not want him to go to jail and the patient himself as well does not want to go to jail or any prison facility. I suggested home health service and again the refused. Patient discharged home in a stable medical condition, recommended to use Tylenol as needed for pain, discharged on daily MiraLAX in addition to as needed Senokot, discharged on tapering course of prednisone, instructed to stop taking hydrocortisone tablets until he finishes the tapering prednisone and then to resume his regular dose of hydrocortisone, discharged on Levaquin 500 mg p.o. daily for 5 days, continued on Symbicort and albuterol as needed, recommended from PCP in 1 week. Discharge Activity: Return to Normal Activity Weight Bearing Status: Weight bearing as tolerated Call your doctor if you observe: Fever of 101 or Higher, Shortness of breath, Dizziness, Fainting spells, Chest pain, Increased palpitations (irregular heartbeat), Uncontrolled pain Home Medications: Medications to take at Discharge Aspirin [Aspirin, Baby] 81 mg PO DAILY@0800 06/29/13 Clopidogrel Bisulfate [Plavix] 75 mg PO DINNER 06/29/13 Levothyroxine [Synthroid] 100 mcg PO DAILY 06/29/13 Losartan Potassium [Cozaar] 50 mg PO DAILY 06/29/13 Metoprolol Tartrate [Lopressor (beta kavon)] 50 mg PO BID 06/29/13 Hydrocortisone 20 mg PO BREAKFAST 12/12/15 Albuterol Inhaler [Ventolin Hfa] 2 puff INHALATION Q4H PRN PRN #1 inhaler 12/13/15 Hydrocortisone 10 mg PO DINNER 09/28/17 Budesonide/Formoterol Fumarate [Symbicort 160-4.5 Mcg Inhaler] 10.2 gm IH BID #1 hfa.aer.ad 09/29/17 Guaifenesin [Mucinex] 600 mg PO BID #14 tab 09/29/17 Atorvastatin Calcium [Lipitor] 20 mg PO QHS 05/16/18 Docusate Sodium [Colace] 100 mg PO DAILY PRN PRN #30 cap 05/19/18 Polyethylene Glycol 3350 [Miralax] 17 gm PO DAILY #30 packet 05/19/18 Prednisone 10 mg PO DAILY #30 tab 05/19/18 levoFLOXacin tablet [Levaquin tablet] 500 mg PO DAILY@0600 #5 tab 05/19/18 Following Prescrptions Were Given to Patient: Docusate Sodium [Colace] 100 mg PO DAILY PRN PRN #30 cap PRN Reason: Congestion levoFLOXacin tablet [Levaquin tablet] 500 mg PO DAILY@0600 #5 tab Polyethylene Glycol 3350 [Miralax] 17 gm PO DAILY #30 packet Prednisone 10 mg PO DAILY #30 tab Primary Care Physician: Nolan Amaya MD [Primary Care Provider] - Please follow up with your Primary Care Physician in: 1 week. Please Follow Up With: Nolan Amaya MD Disposition: Home Minutes spent on discharge:: 32 Patient Condition:: Stable Medical Necessity - Tobacco Use Smoking Status: Light Smoker (<10/day) Tobacco Use: Cigarettes Meaningful Use Info Meaningful Use Diagnoses (Choose all that apply): None applicable Code Visit Inpatient E&M: 60561 Disch Hosp
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
== END 2018-05-19 12:06 | disposition home or self-care (01) | DRG 189 ==
LOC: ED 19:01 → PCU 19:03
PROVIDERS: Admitting Provider Family Medicine; Emergency Provider Emergency Medicine; Family Provider Internal Medicine; PCP Internal Medicine; Visit Provider Hospitalist
DX: J96.01 Acute respiratory failure with hypoxia (principal); J44.1 Chronic obstructive pulmonary disease with (acute) exacerbation; S22.41XA Multiple fractures of ribs, right side, initial encounter for closed fracture; E27.1 Primary adrenocortical insufficiency; Z95.1 Presence of aortocoronary bypass graft; I25.10 Atherosclerotic heart disease of native coronary artery without angina pectoris; I10 Essential (primary) hypertension; E78.5 Hyperlipidemia, unspecified; E03.9 Hypothyroidism, unspecified; Z66 Do not resuscitate; G89.4 Chronic pain syndrome; M54.9 Dorsalgia, unspecified; R07.9 Chest pain, unspecified; F17.210 Nicotine dependence, cigarettes, uncomplicated; K59.00 Constipation, unspecified
CPT/HCPCS: 36415; 36600; 71046; 71101; 74019; 80048; 80053; 82803; 83605; 83735; 85025; 87633; 93005; 94640; 97116; 97162; 97166; 97530; 97802; 99251; 99285; 99406; J7030; A4216; G0463

== ENCOUNTER 2018-05-22 08:46 | Emergency (ER) | payer MEDICARE, SELFPAY ==
[2018-05-22] VITALS (7 sets, daily range): BP systolic 91–161; BP diastolic 60–97; PULSE 69–89; RESP 14–27; TEMP 36.7; O2SAT 91–98; BMI 23.1
[2018-05-22] MEDS: Ondansetron 4 MG/2 ML Vial IV (09:08)
[2018-05-22] MEDS: Morphine 2 MG/ML Syringe IV (09:08)
--- NOTE | 2018-05-22 09:13 | ED.DCSUM_ITS ---
- ER Visit Summary Date of Service: 05/22/18 Chief Complaint: Left chest bruising and swelling History of Present Illness: The patient is a 77 M presenting for evaluation secondary to left chest bruising and swelling. Patient was recently admitted to the hospital for treatment of a partial small bowel obstruction as well as a COPD exacerbation. 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 Patient apparently suffered some right sided rib fractures while he was in the hospital being transferred in the bed. However, the patient's noted the patient to have some left-sided chest bruising and swelling that started today. There is no reported falls associated with this, no new injuries per reports the patient. Patient is on anticoagulation with Coumadin. He does endorse that he is having some shortness of breath secondary to the pain. Review of systems otherwise negative. Physical Examination: Well-developed cachectic male laying in bed no acute distress. Head normocephalic atraumatic. Moist mucous membranes. HEENT atraumatic, neck was supple C-spine was nontender. Heart was regular rate with some irregular extrasystoles noted but no obvious murmurs. Lungs sounds appear clear to auscultation bilaterally, but the patient's respirations are shallow. There is chest tenderness over the left anterior chest with a large area of ecchymosis over the [place] anterior portion of the chest and some swelling noted over the superior anterior portion of the left chest. Abdomen was soft nontender. Bilateral upper extremities are bruised from top to bottom, right radial pulses +2, left radial pulses +1. Patient is alert and oriented. Test Results: Sinus arrhythmia with occasional PVCs a ventricular rate of 97 and nonspecific T changes throughout the leads that is consistent with a prior EKG on the of this month. CBC showed chronic anemia 9.7, chemistry showed hypocalcemia 6.4 hypokalemia 2.8, INR was 1.1. Noncontrasted CT of the chest shows a large hematoma over the left anterior chest but also demonstrates evidence of thoracic aortic aneurysm. CT angiogram of the chest abdomen and pelvis shows evidence of thoracic aortic aneurysm with ulcers that indicate areas of blood flow that have eroded through the media and are only being held back by the intima. Emergency Department Course and Treatment: Patient presented secondary to a large hematoma on the left side of chest. Workup as noted above. Patient's hypo-kalemia was addressed with potassium replacement, hypocalcemia was addressed. The patient's initial CT scan showed only delayed hematoma on his chest but incidentally showed the patient to have a abnormal looking aneurysm in the thorax. Angiogram procedure was performed at the recommendation of the radiologist which shows areas of potential impending rupture. This was discussed with the family, and radiology did feel that this potentially could be addressed intravascularly so the patient was sent to [facility] where he had his prior aortic aneurysm repair. He remained stable in the emergency department. Disposition: Transfer Impression: 1. Left chest hematoma 2. Thoracic aortic aneurysm with ulcer 3. Hypocalcemia 4. Hypokalemia Critical care time 45 minutes This note was generated with [employer] dictation software. It may contain incorrect words, spelling, and punctuation that were not noted in review of the chart prior to signing ED Disposition - Plan for ED Patient: Disposition: [facility] Chief Complaint: Chest Other Referrals: Nolan Amaya MD [Primary Care Provider] -
[2018-05-22 09:33] LABS: Absolute Lymphocyte Count 1.22 X10^3/ul (0.83-4.51); Absolute Neutrophil Count 7.6 X10^3/uL (2.0-7.7); Basophil# 0.01 X10^3/uL; Basophil% 0.1 % (0-1); Eosinophil# 0.03 X10^3/uL; Eosinophils% 0.3 % (0-5); Hematocrit 29.6 % (40-54); Hemoglobin 9.7 g/dl (13.0-16.5); Lymphocyte # 1.22 X10^3/ul (4.0); Lymphocyte % 11.5 % (19-41); Mean Corp Hgb Conc 32.8 g/gl (32-36); Mean Corpuscular Hgb 31.5 pg (27.0-32.0); Mean Corpuscular Volume 96.1 fL (80-94); Mean Platelet Vol. 10.4 fl (6.2-12.0); Monocyte# 1.67 X10^3/uL; Monocyte% 15.7 % (0-10); Neutrophil # 7.62 X10^3/uL (2.7-7.7); Neutrophil % 71.7 % (47-70); Platelet Count 187 K/mm3 (150-450); RBC Distribution Width CV 15.1 % (11.6-14.6); RBC Distribution Width SD 51.9 fl (35.1-43.9); Red Blood Count 3.08 M/mm3 (4.6-6.2); White Blood Count 10.6 K/mm3 (4.4-11.0)
[2018-05-22 09:35] LABS: International Normalized Ratio 1.1; Prothrombin Time (Protime)PT. 14.3 SECONDS (11.7-14.9)
[2018-05-22 09:36] LABS: Partial Thromboplast Time 27.4 Seconds (24.1-36.2)
[2018-05-22 09:47] LABS: Anion Gap 13 (5-15); BUN 16 mg/dL (7-18); BUN/Creat Ratio 24.6 RATIO (10-20); Calcium,Total 6.4 mg/dL (8.5-10.1); Chloride 111 mmol/L (98-107); Creatinine, Serum 0.65 mg/dL (0.70-1.30); EST Glomerular Filtration Rate 126 mL/min (>60); Est Glom Filt Rate - Afr Amer 152 mL/min (>60); Estimated Creatinine Clearance 54.05 ml/min; Glucose 80 mg/dL (74-106); Potassium 2.8 mmol/L (3.5-5.1); Sodium Level 144 mmol/L (136-145)
[2018-05-22 09:48] LABS: Differential Indicated SCAN CRITERIA MET; POSITIVE COUNT NO; POSITIVE DIFFERENTIAL YES; POSITIVE MORPHOLOGY YES
[2018-05-22 10:09] LABS: Platelet Estimate ADEQUATE (ADEQ)
[2018-05-22 10:10] LABS: Red Cell Morphology NORM C+C NORMAL (NORM C&C)
--- NOTE | 2018-05-22 10:25 | CT_ITS ---
CT/CTA Chest W/WO Contrast IMPRESSION: Multilevel nonacute wedge compression fractures within the thoracolumbar junction nonacute mild wedging of T8 and T9. Bony osteopenia Status post stent placement repair of abdominal aortic aneurysm. 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 There is focal thrombus within the right external and internal internal iliac arteries greater than 70% with reconstitution distally. Could consider follow-up study such as CT angiogram with runoff for further evaluation when clinically appropriate. N.B. : The above information has been verbally conveyed by Zaida Hernandes MD to Dr Baugh , Referring Physician, on 05/22/2018 11:45:12 (ET). Electronically Signed: Zaida Hernandes MD at 11:29 EDT Tel , Service support ,
[2018-05-22] MEDS: fentaNYL 100 MCG/2 ML Ampul 25 MCG IV (14:13)
== END 2018-05-22 14:18 | disposition short-term general hospital (02) ==
PROVIDERS: Emergency Provider Emergency Medicine; Family Provider Internal Medicine; PCP Internal Medicine
DX: S20.212A Contusion of left front wall of thorax, initial encounter (principal); X58.XXXA Exposure to other specified factors, initial encounter; Y93.89 Activity, other specified; Y92.9 Unspecified place or not applicable; Y99.9 Unspecified external cause status; I71.2 Thoracic aortic aneurysm, without rupture; E83.51 Hypocalcemia; E87.6 Hypokalemia; Z86.79 Personal history of other diseases of the circulatory system; E27.1 Primary adrenocortical insufficiency; I10 Essential (primary) hypertension; I25.10 Atherosclerotic heart disease of native coronary artery without angina pectoris; E78.00 Pure hypercholesterolemia, unspecified; J44.9 Chronic obstructive pulmonary disease, unspecified; Z79.01 Long term (current) use of anticoagulants
CPT/HCPCS: 71250; 71275; 74175; 80048; 85025; 85610; 85730; 86850; 86900; 93005; 96365; 96375; 99285; Q9967; A4216; J0610; J2405